=== PATIENT | female | born 1955 | race Caucasian/White ===

== ENCOUNTER 2020-04-22 06:26 | Inpatient (IN) | payer MEDICARE ==
[~2020-04-22] VITALS: Ht 162.6 cm; Wt 112.4 kg
[2020-04-22] MEDS ORDERED: HUMULIN R100 UNIT/1 SUBQ (06:36)
[2020-04-22] MEDS ORDERED: SYNTHROID137 MC1 PO (06:37)
[2020-04-22] MEDS ORDERED: HUMULIN N100 UNIT/1 SQ (06:37)
[2020-04-22 06:38] VITALS: BP 171/94
[2020-04-22 07:20] LABS: BE -1.8 mmol/L (-2 to +3); PCO2 30.6 mmHg (35.0-45.0); PO2 73.4 mmHg (75.0-100.0); pH 7.458 (7.340-7.450)
[2020-04-22 07:34] LABS: ABSOLUTE LYMPHOCYTES 0.4 thou/uL (0.8-5.3); ABSOLUTE MONOCYTES 0.4 thou/uL (0.0-1.2); ABSOLUTE NEUTROPHILS 4.8 thou/uL (1.6-8.1); BASOPHILS 0.8 %; EOSINOPHILS 0.2 %; HEMATOCRIT 36.3 % (37.0-47.0); LYMPHOCYTES 7.5 %; MCH 27.4 pg (26.0-34.0); NUCLEATED RBCS 0 /100WBC; PLATELET COUNT* 210 thou/uL (150-400); POLYS 84.5 %; RBC 4.38 mil/uL (4.20-5.00); RDW-CV 15.6 % (10.5-14.5); WBC 5.6 thou/uL (4.0-11.0)
[2020-04-22 07:46] LABS: CALCIUM 8.2 mg/dL (8.5-10.1); CREATININE 1.4 mg/dL (0.6-1.3); POTASSIUM 3.7 mmol/L (3.5-5.1); PROTIME 10.7 Seconds (9.20-11.50)
[2020-04-22 07:57] LABS: ALBUMIN 3.5 g/dL (3.4-5.0); TOTAL BILIRUBIN 0.7 mg/dL (<0.1-1.0); TOTAL PROTEIN 7.9 g/dL (6.4-8.2)
--- NOTE | 2020-04-22 08:46 | NUR ---
PT'S SON, MIRIAN BOB, CALLED TO CHECK ON THE PATIENT. THE PT GAVE PERMISSION FOR HIM TO HAVE ANY PATIENT INFORMATION.
[2020-04-22 12:36] VITALS: BP 132/47
[2020-04-22 13:30] VITALS: BP 156/65
[2020-04-22] MEDS ORDERED: LITE COAT ASPI325 MG PO (15:28)
--- NOTE | 2020-04-22 15:40 | 2DMMODE ---
[place] [address] 2 D/M-MODE ECHOCARDIOGRAM Name: ARIANNA MAYBERRY Adryan Room: [address] IN .R.#: [id number] Admission: 04/22/20 Attend Phys: Jovanny Chapman, Discharge: Date of : 59 Date of Service: 04/22/20 1539 Report #: [id number] THIS REPORT FOR: cc: PETE REESE NP, KATHERINE J. NP Holkins, John M. MD [facility] ~ APPROVED REPORT Study performed: 04/22/2020 13:44:13 EXAM: Comprehensive 2D, Doppler, and color-flow Echocardiogram Patient Location: In-Patient BSA: 2.17 HR: 103 bpm BP: 171/83 mmHg Other Information Study Quality: Fair Indications Dyspnea 2D Dimensions IVSd: 9.84 (7-11mm) LVOT Diam: 17.78 (18-24mm) LVDd: 47.32 mm PWd: 9.77 (7-11mm) Ascending Ao: 27.00 (22-36mm) LVDs: 29.98 (25-40mm) Aortic Root: 22.33 mm Volumes Left Atrial Volume (Systole) LA ESV Index: 19.80 mL/m2 Aortic Valve AoV Peak Bernardo.: 1.10 m/s AO Peak Gr.: 4.84 mmHg LVOT Max P.51 mmHg AO Mean Gr.: 2.62 mmHg LVOT Mean P.70 mmHg LVOT Max V: 0.94 m/s AO V2 VTI: 19.06 cm LVOT Mean V: 0.60 m/s CATIE (VTI): 2.55 cm2 LVOT V1 VTI: 19.55 cm Mitral Valve MV Mean Gr.: 4.13 mmHg E/A Ratio: 1.75 [place] [address] 2 D/M-MODE ECHOCARDIOGRAM Name: ARIANNA MAYBERRY Room: [address] IN ..#: [id number] Admission: 04/22/20 Attend Phys: Jovanny Chapman, Discharge: Date of : 59 Date of Service: 04/22/20 1539 Report #: [id number] MV Decel. Time: 176.12 ms MV E Max Bernardo.: 1.63 m/s MV PHT: 51.07 ms MVA (PHT): 4.31 cm2 TDI E/Lateral E': 23.29 E/Medial E': 20.38 Medial E' Bernardo.: 0.08 m/s Lateral E' Bernardo.: 0.07 m/s Pulmonary Valve PV Peak Bernardo.: 0.86 m/s PV Peak Gr.: 2.94 mmHg Tricuspid Valve RAP Estimate: 10.00 mmHg TR Peak Gr.: 36.75 mmHg RVSP: 46.75 mmHg PA Pressure: 46.75 mmHg Left Ventricle The left ventricle is normal size. There is distal septal and apical hypokinesis. Mild concentric left ventricular hypertrophy. Left ventricular systolic function is borderline. LVEF is 50-55%. The left ventricular diastolic function is normal. Right Ventricle The right ventricle is normal size. The right ventricular systolic function is normal. Device lead is present in the right ventricle. Atria Left atrium is mildly dilated. The right atrium size is normal. Aortic Valve Mild aortic valve sclerosis. No aortic regurgitation is present. There is no aortic valvular stenosis. Mitral Valve Mitral valve leaflets are mildly thickened. Mild mitral regurgitation. No evidence of mitral valve stenosis. Tricuspid Valve The tricuspid valve is normal in structure. Mild tricuspid regurgitation. Pulmonic Valve The pulmonary valve is normal in [place] [address] 2 D/M-MODE ECHOCARDIOGRAM Name: ARIANNA MAYBERRY Room: [address] IN [facility]#: [id number] Admission: 04/22/20 Attend Phys: Jovanny Chapman, Discharge: Date of : 59 Date of Service: 04/22/20 1539 Report #: [id number] regurgitation. Great Vessels The aortic root is normal in size. IVC is normal in size and collapses >50% with inspiration. Pericardium There is no pericardial effusion. <Conclusion> The left ventricle is normal size. Mild concentric left ventricular hypertrophy. Left ventricular systolic function is borderline. LVEF is 50-55%. The right ventricle is normal size. Left atrium is mildly dilated. The right atrium size is normal. Mild aortic valve sclerosis. No aortic regurgitation is present. There is no aortic valvular stenosis. Mitral valve leaflets are mildly thickened. Mild mitral regurgitation. No evidence of mitral valve stenosis. The tricuspid valve is normal in structure. Mild tricuspid regurgitation. IVC is normal in size and collapses >50% with inspiration. There is no pericardial effusion. There is distal septal and apical hypokinesis. Device lead is present in the right ventricle. <ELECTRONICALLY SIGNED> By: Beto [place] MD, FACC 04/22/20 1539 1539 1539 Beto [place] MD, FACC /INF
--- NOTE | 2020-04-22 16:02 | EKG ---
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: TM : 1955 Requested By: Lucita Grady Order Number: [id number] MD: Beto [place] Measurements Intervals [place] Rate: 102 P: 85 SD: 150 QRS: 26 QRSD: 99 T: 129 QT: 329 QTc: 429 Interpretive Statements Sinus tachycardia Possible anterior infarct, old Repol abnrm suggests ischemia, lateral leads Baseline wander in lead(s) V1 No previous ECG available for comparison Electronically Signed On 04-22-2020 16:01:08 CDT by Beto [place] [email or web address] <ELECTRONICALLY SIGNED> By: Beto [place] MD, [facility] 04/22/20 1601 0735 0735 Beto [place] MD, [facility] /EPI
--- NOTE | 2020-04-22 17:56 | NUR ---
PT. ADMITTED TO FLOOR FROM ER. ADMISSION INTERVENTIONS DOCUMENTED. PT. ON HEPARIN GTT PER PROTOCOL, TOLERATING WITHOUT COMPLICATIONS. UP AD TARUN, TOLERATED WITHOUT DIFFICULTY. RLE BOOT REMOVED TO AIR DRY. L LIMB ALERT, BAND IN PLACE. VSS, SR ON MONITOR, DENIES CHEST PAIN. CATH SCHEDULED FOR TOMORROW. STRICT I&OS, DROPLET PRECAUTIONS UNTIL COVID 19 R/OUT TOMORROW. TRANSFERED CARE TO [facility]. PT IN STABLE CONDITION, IN BED WATCHING TV AT THIS TIME.
[2020-04-22 20:00] VITALS: BP 151/70
[2020-04-23] VITALS (14 sets, daily range): BP systolic 102–150; BP diastolic 38–75
[2020-04-23 02:07] LABS: GLYCOHEMOGLOBIN (HGB A1C) 9.4 % (4.8-5.6)
--- NOTE | 2020-04-23 06:43 | NUR ---
ASSESSMENTS COMPLETED AT BEDSIDE, PLEASE REFER TO CHARTING. MEDICATIONS ADMINISTERED PER MAR AND PHYSICIAN ORDERS. HOURLY ROUNDING COMPLETED FOR SAFETY, CALL LIGHT WITHIN REACH, ALL CURRENT NEEDS HAVE BEEN MET AT THIS TIME.
[2020-04-23 08:25] LABS: HEMATOCRIT 32.9 % (37.0-47.0); HEMOGLOBIN 10.9 gm/dL (12.0-15.0); MCH 27.3 pg (26.0-34.0); MCHC 33.2 g/dL (28.0-37.0); MCV 82.2 fL (80.0-100.0); MPV 9.8 fl. (7.2-11.1); RDW-CV 15.5 % (10.5-14.5); WBC 7.4 thou/uL (4.0-11.0)
[2020-04-23 08:46] LABS: ANION GAP 7 mmol/L (7-16); BUN 37 mg/dL (7-18); CALCIUM 8.2 mg/dL (8.5-10.1); CHLORIDE 98 mmol/L (98-107); CHOLESTEROL 167 mg/dL (<200); CO2 29 mmol/L (21-32); CREATININE 1.3 mg/dL (0.6-1.3); GLUCOSE 202 mg/dL (70-99); HDL CHOLESTEROL 40 mg/dL (>40); LDL CHOLESTEROL 112 mg/dL (<100); MAGNESIUM 2.6 mg/dL (1.8-2.4); SODIUM 134 mmol/L (136-145); TC:HDL 4.2 Ratio (Not establshd); TRIGLYCERIDE 75 mg/dL (<150); TROPONIN-I LEVEL 2.33 ng/mL (<0.06); VLDL 15 mg/dL (<40)
[2020-04-23 08:48] LABS: SERUM ASSESSMENT Clear
--- NOTE | 2020-04-23 12:09 | NUR ---
Nutruition: screen per BMI. Pt reported normal appetite, has been NPO today. Albumin 3.5. RFT's elevated. BG 191-490. Meds reviewed. Pt delcined diet info. Assess at low nutrition risk at this time.
--- NOTE | 2020-04-23 13:20 | NUR ---
Pt meeting with cardiac rehab nurse, EDWIN to f/u later
--- NOTE | 2020-04-23 14:45 | NUR ---
Pt is A&O. Resides at home alone. Independent. Pt has a walker and cane that she can use for mobility. Pt has a home cpap. No hx of HH or SNF. Pt recently moved to the area to be closer to her son. Goal is home at hi. Pt waiting to have cath today.
--- NOTE | 2020-04-23 20:16 | NUR ---
PT. AOX4,VSS, SR ON MONITOR, DENIES PAIN, ANXIOUS ABOUT CATH THIS AM. PT. NPO EXCEPT MEDS. SSI INSULIN HELD BUT SCHEDULED ADMINISTERED PT IS TYPE 1 DM. CATH DELAYED DUE TO EMERGENT CASES. PT. RETURNED FROM CATH WITH 2 CIRCUMFLEX STENTS PLACED. POST CATH INTERVENTIONS DOCUMENTED. PT. IN BED IN PARTIAL [place] POSITION WITH HOB 30 DEGREES. PT EDUCATED TO WATCH FOR S/S OF BLEEDNG FROM CATH SITE AND TO REMAIN IN SAID POSITION. CALL LIGHT AND PERSONAL BELONGINGS PLACED WITHIN REACH. HOURLY ROUNDING PERFORMED. IN STABLE CONDITION AND IN NO APPARENT DISTRESS AT SHIFT CHANGE.
[2020-04-24] VITALS: BP 98/48
[2020-04-24 04:00] VITALS: BP 135/53
[2020-04-24 04:17] LABS: HEMOGLOBIN 10.5 gm/dL (12.0-15.0); MCH 27.6 pg (26.0-34.0); MCHC 33.7 g/dL (28.0-37.0); MPV 10.5 fl. (7.2-11.1); RBC 3.78 mil/uL (4.20-5.00); RDW-CV 15.5 % (10.5-14.5); WBC 8.6 thou/uL (4.0-11.0)
[2020-04-24 05:25] LABS: ALBUMIN 2.8 g/dL (3.4-5.0); CALCIUM 7.9 mg/dL (8.5-10.1); CREATININE 1.2 mg/dL (0.6-1.3); POTASSIUM 4.2 mmol/L (3.5-5.1); TOTAL BILIRUBIN 0.6 mg/dL (<0.1-1.0); TOTAL PROTEIN 6.8 g/dL (6.4-8.2)
[2020-04-24 05:37] LABS: TROPONIN-I LEVEL 1.53 ng/mL (<0.06)
[2020-04-24 08:00] VITALS: BP 130/54
[2020-04-24 08:45] VITALS: BP 110/57
[2020-04-24] MEDS ORDERED: LIPITOR 20 MG T20 M1 PO (10:52)
[2020-04-24] MEDS ORDERED: BRILINTA90 MG PO (10:52)
[2020-04-24] MEDS ORDERED: CARVEDILOL3.125 MG PO (10:52)
[2020-04-24] MEDS ORDERED: CEFDINIR300 MG PO (10:52)
[2020-04-24] MEDS ORDERED: NITROGLYCERIN0.4 MG SUBLING (10:52)
[2020-04-24] MEDS ORDERED: ASPIR 8181 MG PO (10:52)
[2020-04-24] MEDS ORDERED: COZAAR 25 MG TA25 M1 PO (10:52)
[2020-04-24] MEDS ORDERED: AZITHROMYCIN 2250 MG PO (10:52)
[2020-04-24] MEDS ORDERED: LIPITOR40 MG PO (10:57)
--- NOTE | 2020-04-24 11:50 | CARD ---
[address] [address] CARDIAC CATH REPORT Name: JEFE,ARIANNA Adryan Room: [address] IN [facility]#: [id number] Admission: 04/22/20 Attend Phys: Jovanny Chapman MD Discharge: Date of : 59 Report #: [id number] THIS REPORT FOR: //name// cc: PETE REESE NP, KATHERINE J. NP ~ APPROVED REPORT Study performed: 04/23/2020 14:38:22 Patient Details Patient Status: In-Patient Room #: The patient is a 64 year-old female Event Personnel Beto [place] Head Rigger, Silke Moran RN Application Integration Architect, Rosie Paniagua RN Application Integration Architect, Daniel Irizarry RTR Scrub, Екатерина Marcelo RTR Monitor Procedures Performed Art Access - R femoral artery, Left Heart Cath Coronaries, Bypass Grafts LHCCORCABG, PETR Place w/wo Plasty Single CIRC , Hemostasis w/ Angioseal Indication Non-STEMI Risk Factors Obesity, Hypercholesterolemia, Hypertension Previous Procedures/Diagnoses Previous CABG, Previous NH Admission/Lab Medications/Medications given during procedure Angiomax IV 16.5 ml, Angiomax Drip IV 38.5 ml per hr, Ticagrelor PO 180 mg, Aspirin PO 162 mg Procedure Narrative The patient was brought electively to the Cardiac Catheterization Laboratory and was prepped and draped in a sterile manner. The right femoral was infiltrated with 2% Lidocaine subcutaneous anesthesia. A 6F Hulen sheath was inserted into the right femoral artery. Coronary angiography was performed using coronary diagnostic catheters. The right coronary system was accessed and visualized with a 6F JR4 catheter. The left coronary system was accessed and visualized with a 6F JL3.5 catheter. The [place] [address] CARDIAC CATH REPORT Name: ARIANNA MYABERRY Room: [address] [place] [facility]#: [id number] Admission: 04/22/20 Attend Phys: Jovanny Chapman MD Discharge: Date of : 59 Report #: [id number] and visualized with a 6F Pigtail catheter. Left ventricular/Aortic Valve gradient assessed via catheter pullback. Pre-demployment femoral angiogram was performed . Closure device was deployed with a 6 Fr Angioseal STS. The patient tolerated the procedure well and there were no complications associated with the procedure. There was no hematoma. The ALEXANDRE graft was visualized with the 6F IM catheter. The saphenous vein grafts were visualized with the 6F JR4 catheter and the 6F ARMOD 1 catheter. Intraoperative Conscious Sedation Sedation start time: 15:29 Case end Time: 16:22 Fentanyl 25 mcg Versed 1 mg Fluoro Time: 15.1 minutes Dose: DAP 805460 cGycm2 2662 2662 mGy Contrast Type and Amount: Visipaque 175 ml [place] Artery Percent Stenosis 1. Widely patent ALEXANDRE graft to the LAD with 70% tubular distal LAD narrowing 2. Widely patent saphenous vein graft to the distal right coronary artery with 50% posterior descending branch narrowing 3. Small patent saphenous vein graft to a tiny diagonal branch with 50% ostial graft narrowing Diagnostic Cath Left Main 0% narrowing LAD 100% proximal LAD occlusion Circumflex 50% tubular proximal circumflex narrowing with 90% mid vessel stenosis and 60% tubular distal narrowing Right Coronary 100% proximal occlusion Left Ventriculography Left Ventriculography was not performed. Hemodynamics The aortic pressure is 184/47 mmHg with a mean of 73 mmHg. The left ventricular pressure is 153/3 mmHg with a mean of mmHg. The left ventricular end diastolic pressure is 22 mmHg. There was no gradient across the aortic valve upon pullback. PCI Technique Lesion Anticoagulation was achieved with Angiomax. [place] [address] CARDIAC CATH REPORT Name: ARIANNA MAYBERRY Room: [address] [place] [facility]#: [id number] Admission: 04/22/20 Attend Phys: Jovanny Chapman MD Discharge: Date of : 59 Report #: [id number] with Angiomax IV 16.5 ml. Percutaneous coronary intervention was performed on the mid circumflex artery segment. The lesion stenosis prior to intervention was 90% with KAREY 3 flow. A 6FR XB 3.0 100CM Guide Catheter was used to engage the Left ostium. A BMW 190cm Interventional Guidewire was used to cross the lesion. BALLOON DILATION A Balloon catheter Euphora SC 2.25x12 was inserted and inflated up to 12.00atm for 12seconds. A balloon catheter NC Euphora 2.25 x 12 was inserted and inflated up to 18 cally for 10 seconds. Additional Inflation: 20 cally for 10 seconds. STENT DEPLOYMENT A drug-eluting stent Billy RX Stent 2.93B08pj was inserted and inflated up to 12.00atm for 8seconds. Additional Inflation: 12.00atm for 8seconds. A drug eluting stent Billy RX Stent 2.25 x 8mm was inserted and inflated up to 12 cally for 8 seconds. Additional Inflation: 12 cally for 7 seconds. Final angiography reveals 0 % stenosis with KAREY 3 flow. Conclusion 1. Non-STEMI 2. Severe coronary artery disease characterized by the following: A 100% proximal LAD occlusion B 50% proximal 90% mid and 60% distal circumflex narrowing C total occlusion of the dominant right coronary proximally 2. Graft study characterized by the following: A widely patent ALEXANDRE graft to the LAD with 70% tubular distal LAD narrowing B patent saphenous vein graft to a very tiny diagonal with 50% ostial graft narrowing C widely patent saphenous vein graft the distal right coronary artery with 50% posterior descending branch narrowing 3. Moderate elevation of left ventricular end-diastolic pressure at rest with moderate [place] [address] CARDIAC CATH REPORT Name: ARIANNA MAYBERRY Room: [address] [place] [facility]#: [id number] Admission: 04/22/20 Attend Phys: Jovanny Chapman MD Discharge: Date of : 59 Report #: [id number] 4. Successful PCI with deployment of sequential drug-eluting stents at the site of 90% mid circumflex stenosis with 0% residual narrowing and KAREY-3 flow to the distal vessel Recommendations Cardiac Risk Reduction Program Aggressive Medical Therapy Medications Administered Aspirin (any) Ticagrelor Diagnostic Cath Approved by: Beto [place] MD Date/Time: 04/24/2020 11:45:26 <ELECTRONICALLY SIGNED> By: Beto [place] MD, [facility] 04/24/20 1149 1149 1149Beto [place] MD, FACC /INF
[2020-04-24 12:10] VITALS: BP 112/45
[2020-04-24 15:09] VITALS: BP 110/57
--- NOTE | 2020-04-26 11:14 | EKG ---
[place] [address] ELECTROCARDIOGRAM REPORT Name: PEARL MAYBERRYNA Adryan Room: [address] IN M.R.#: [id number] Admission: 04/22/20 Attend Phys: Jovanny Chapman, Discharge: 04/24/20 Date of : 59 Date of Service: 04/24/20 0551 Report #: [id number] THIS REPORT FOR: //name// [facility] Test Date: 2020-04-24 Test Time: 05:51:41 Pat Name: ARIANNA MAYBERRY Department: Room: [address] Gender: F Press Tender: THOWARD3 : 1955 Requested By: Beto [place] Order Number: [id number] Yahaira MD: Rao Davison Measurements Intervals [place] Rate: 66 P: 80 NV: 165 QRS: 16 QRSD: 99 T: 116 QT: 436 QTc: 457 Interpretive Statements Sinus rhythm Consider anterior infarct Repol abnrm suggests ischemia, lateral leads Electronically Signed On 04-26-2020 11:13:55 CDT by Rao Davison [email or web address] <ELECTRONICALLY SIGNED> By: Rao Davison MD, [facility] 04/26/20 1113 0551 0551 Rao Davison MD, [facility] /EPI
--- NOTE | 2020-04-26 11:14 | EKG ---
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 <ELECTRONICALLY SIGNED> By: Rao Davison MD, [facility] 04/26/20 1113 1708 1708 Rao Davison MD, [facility] /EPI
== END 2020-04-24 16:00 | disposition home or self-care (01) | DRG 246 ==
LOC: M.ERS 06:26 → M.TBA-ER 08:28 → M.2W 08:28
PROVIDERS: Internal Medicine; Personal Emergency Response Attendant; ADMIT Internal Medicine; ATTEND Internal Medicine
PROC: 027035Z Dilation of Coronary Artery, One Artery with Two Drug-eluting Intraluminal Devices, Percutaneous Approach (ICD-10-PCS; principal; 2020-04-23)
PROC: B211YZZ Fluoroscopy of Multiple Coronary Arteries using Other Contrast (ICD-10-PCS; principal; 2020-04-23)
PROC: B213YZZ Fluoroscopy of Multiple Coronary Artery Bypass Grafts using Other Contrast (ICD-10-PCS; principal; 2020-04-23)
PROC: B218YZZ Fluoroscopy of Left Internal Mammary Bypass Graft using Other Contrast (ICD-10-PCS; principal; 2020-04-23)
PROC: 4A023N7 Measurement of Cardiac Sampling and Pressure, Left Heart, Percutaneous Approach (ICD-10-PCS; principal; 2020-04-23)
DX: I21.4 Non-ST elevation (NSTEMI) myocardial infarction (principal); J96.01 Acute respiratory failure with hypoxia; J18.9 Pneumonia, unspecified organism; I50.33 Acute on chronic diastolic (congestive) heart failure; Z68.41 Body mass index [BMI] 40.0-44.9, adult; I13.0 Hypertensive heart and chronic kidney disease with heart failure and stage 1 through stage 4 chronic kidney disease, or unspecified chronic kidney disease; E66.9 Obesity, unspecified; E03.9 Hypothyroidism, unspecified; N18.3 Chronic kidney disease, stage 3 (moderate); E11.22 Type 2 diabetes mellitus with diabetic chronic kidney disease; I25.10 Atherosclerotic heart disease of native coronary artery without angina pectoris; I25.5 Ischemic cardiomyopathy; E78.5 Hyperlipidemia, unspecified; E11.65 Type 2 diabetes mellitus with hyperglycemia; I48.0 Paroxysmal atrial fibrillation; Z20.828 Contact with and (suspected) exposure to other viral communicable diseases; I25.2 Old myocardial infarction; Z79.4 Long term (current) use of insulin; Z79.899 Other long term (current) drug therapy; Z95.1 Presence of aortocoronary bypass graft; Z95.810 Presence of automatic (implantable) cardiac defibrillator; Z85.3 Personal history of malignant neoplasm of breast; Z82.49 Family history of ischemic heart disease and other diseases of the circulatory system

== ENCOUNTER 2020-04-26 19:09 | Inpatient (IN) | payer MEDICARE ==
[~2020-04-26] VITALS: Ht 162.6 cm; Wt 116.6 kg
[~2020-04-26 19:09] MED LIST: ASPIR 8181 MG PO; AZITHROMYCIN 2250 MG PO; BRILINTA90 MG PO; CARVEDILOL3.125 MG PO; CEFDINIR300 MG PO; COZAAR 25 MG TA25 M1 PO; HUMULIN N100 UNIT/1 SQ; HUMULIN R100 UNIT/1 SUBQ; LIPITOR 20 MG T20 M1 PO; LIPITOR40 MG PO; LITE COAT ASPI325 MG PO; NITROGLYCERIN0.4 MG SUBLING; SYNTHROID137 MC1 PO
[2020-04-26 19:26] VITALS: BP 163/67
[2020-04-26 19:55] LABS: ABSOLUTE BASOPHILS 0.1 thou/uL (0.0-0.2); ABSOLUTE LYMPHOCYTES 1.8 thou/uL (0.8-5.3); ABSOLUTE MONOCYTES 0.6 thou/uL (0.0-1.2); ABSOLUTE NEUTROPHILS 4.9 thou/uL (1.6-8.1); BASOPHILS 1.3 %; EOSINOPHILS 0.3 %; HEMATOCRIT 32.8 % (37.0-47.0); HEMOGLOBIN 10.9 gm/dL (12.0-15.0); LYMPHOCYTES 24.2 %; MCH 27.4 pg (26.0-34.0); MCHC 33.3 g/dL (28.0-37.0); MCV 82.2 fL (80.0-100.0); MONOCYTES 7.9 %; MPV 9.6 fl. (7.2-11.1); NUCLEATED RBCS 0 /100WBC; POLYS 66.3 %; RBC 3.98 mil/uL (4.20-5.00); RDW-CV 16.2 % (10.5-14.5); WBC 7.4 thou/uL (4.0-11.0)
[2020-04-26 19:57] LABS: PLATELET COUNT* 311 thou/uL (150-400)
[2020-04-26 20:07] LABS: PROTIME 10.5 Seconds (9.20-11.50)
[2020-04-26 20:09] LABS: CALCIUM 7.5 mg/dL (8.5-10.1); CREATININE 1.1 mg/dL (0.6-1.3); POTASSIUM 3.6 mmol/L (3.5-5.1)
[2020-04-26 20:22] LABS: ALBUMIN 2.8 g/dL (3.4-5.0); MAGNESIUM 2.2 mg/dL (1.8-2.4); TOTAL BILIRUBIN 0.4 mg/dL (<0.1-1.0); TOTAL PROTEIN 6.5 g/dL (6.4-8.2)
[2020-04-27] VITALS (7 sets, daily range): BP systolic 121–184; BP diastolic 56–78
[2020-04-27 06:08] LABS: URINE BILIRUBIN NEGATIVE (Negative); URINE BLOOD NEGATIVE (Negative); URINE CLARITY CLEAR; URINE COLOR YELLOW; URINE GLUCOSE-RANDOM NEGATIVE (Negative); URINE KETONES NEGATIVE (Negative); URINE LEUKOCYTES-REFLEX NEGATIVE (Negative); URINE NITRITE-REFLEX NEGATIVE (Negative); URINE PROTEIN NEGATIVE (Negative); URINE SPECIFIC GRAVITY 1.025 (1.005-1.030)
--- NOTE | 2020-04-27 06:17 | NUR ---
PATIENT ADMITTED TO ROOM 206 FROM THE ER AT APPROXIMATELY 0015. REPORT GIVEN FROM THE ER NURSE. PATIENT ALERT AND ORIENTED X 4. VSS ON RA. NO C/O PAIN AT THIS TIME. PATIENT ORIENTED TO ROOM AND POLICIES AND ADMISSION ASSESMENT PERFORMED AND CHARTED. FALL EDUCATION GIVEN. PATIENT VERBALIZED UNDERSTANDING. PATIENT IS UP WITH ASSIST X 1 WITH WALKER TO THE BATHROOM. PATIENT SINUS RHYTHM ON THE TELE MONITOR. IV IN RIGHT FOREARM-SL. UA COLLECTED AND SENT FOR ANALYSIS. PATIENT REMAINS IN SPECIAL CONTACT PRECAUTONS D/T PENDING COVID. PATIENT INSTRUCTED TO USE CALL LIGHT WHEN NEEDING ASSISTANCE. PATIENT EDUCATED AND ENCOURAGED TO USE CLUSTER CARE WHEN CALLING D/T PENDING COVID-19 TO HELP PREVENT POSSIBLE EXPOSURE TO STAFF. WILL CONTINUE WITH PLAN OF CARE AND NURSING TO MONITOR.
--- NOTE | 2020-04-27 11:11 | EKG ---
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: [facility] : 1955 Requested By: Lily Foster Order Number: [id number] MD: Rao Davison Measurements Intervals [place] Rate: 75 P: 68 ME: 171 QRS: 16 QRSD: 103 T: 108 QT: 385 QTc: 430 Interpretive Statements Sinus rhythm Probable anterior infarct, old Repol abnrm suggests ischemia, lateral leads Compared to ECG 04/24/2020 05:51:41 No significant changes Electronically Signed On 04-27-2020 11:10:10 CDT by Rao Davison [email or web address] <ELECTRONICALLY SIGNED> By: Rao Davison MD, [facility] 04/27/20 1110 29 29 Rao Davison MD, [facility] /EPI
--- NOTE | 2020-04-27 15:38 | NUR ---
Pt did not answer phone, CM spoke with Pt's son via phone. Pt is covid pending. Pt known to this CM [place] last week. Per son, Pt was dc on Sunday, was covid negative during that hospital stay, had been doing ok, but continued to complain of not feeling great. Pt stated developing fevers on Sunday and return to the hospital yesterday. Pt resides at home alone. Independent. Pt has a walker and cane for mobility. Has a home cpap. Goal is home at [place]. Following.
--- NOTE | 2020-04-27 15:59 | NUR ---
assumed pt care report received from nurse pt is aox4. on ra. tracing sinus rythm on playground monitor. accucheck ac.hs. pt denies pain. enhanced isolation in place. awaiting covid 19 lab result. blood thinner admisnistered as ordered. temperature of 101.9 at 08:00am. tylenol given. pt has good appetite.bno further complaint. iv antibiotic hanged as ordered. calllight at [facility]. fall precaution in place. will continue to monitor pt
--- NOTE | 2020-04-27 22:46 | NUR ---
ASSUMED CARE OF PT AT 1900. PT IS ALERT AND ORIENTED. VSS. PERRLA. NO COMPLAINTS OF PAIN. PT IS STILL PENDING COVID. PT IS IN SINUS RYTHM ON THE TELEMETRY. PT IS RESTING COMFORTABLY IN BED. RESPIRATIONS ARE EVEN AND NONLABORED. WILL CONTINUE TO MONITOR PT.
[2020-04-28] VITALS: BP 124/40; BP 167/68
[2020-04-28 04:00] VITALS: BP 154/52
[2020-04-28 08:00] VITALS: BP 136/64
[2020-04-28 08:51] LABS: ABSOLUTE BASOPHILS 0.1 thou/uL (0.0-0.2); ABSOLUTE EOSINOPHILS 0.1 thou/uL (0.0-0.7); ABSOLUTE LYMPHOCYTES 6.5 thou/uL (0.8-5.3); ABSOLUTE MONOCYTES 0.8 thou/uL (0.0-1.2); ABSOLUTE NEUTROPHILS 5.2 thou/uL (1.6-8.1); BASOPHILS 0.8 %; EOSINOPHILS 0.4 %; HEMATOCRIT 32.3 % (37.0-47.0); HEMOGLOBIN 10.7 gm/dL (12.0-15.0); LYMPHOCYTES 51.5 %; MCH 27.2 pg (26.0-34.0); MCHC 33.1 g/dL (28.0-37.0); MCV 82.2 fL (80.0-100.0); MONOCYTES 6.1 %; MPV 9.2 fl. (7.2-11.1); NUCLEATED RBCS 0 /100WBC; PLATELET COUNT* 344 thou/uL (150-400); POLYS 41.2 %; RBC 3.93 mil/uL (4.20-5.00); RDW-CV 15.9 % (10.5-14.5); WBC 12.6 thou/uL (4.0-11.0)
[2020-04-28 09:06] LABS: ALBUMIN 2.7 g/dL (3.4-5.0); CALCIUM 7.6 mg/dL (8.5-10.1); POTASSIUM 4.1 mmol/L (3.5-5.1); TOTAL BILIRUBIN 0.7 mg/dL (<0.1-1.0); TOTAL PROTEIN 6.4 g/dL (6.4-8.2)
[2020-04-28 12:05] VITALS: BP 103/38
--- NOTE | 2020-04-28 12:54 | NUR ---
Per Dr, Pt febrile today. Blood cultures were negative. Dc in a few days.
[2020-04-28 16:39] VITALS: BP 159/68
--- NOTE | 2020-04-28 18:47 | NUR ---
PT IS OAX4. ON RA. TRACING SR ON CLOTHING EXAMINER. VSS. NO COMPLAINT. ACCUCHECK. DENIES PAIN. UP WITH ASSIST TO RESTROOM. IV ABX HANGED. HIGH TEMP THIS AM. TLENOL WAS GIVEN. TEMP WENT DOWN.
[2020-04-29] VITALS: BP 128/43
[2020-04-29 04:41] LABS: HEMATOCRIT 31.4 % (37.0-47.0); HEMOGLOBIN 10.3 gm/dL (12.0-15.0); MCH 27.3 pg (26.0-34.0); MCHC 32.7 g/dL (28.0-37.0); MCV 83.3 fL (80.0-100.0); MPV 9.5 fl. (7.2-11.1); NUCLEATED RBCS 0 /100WBC; PLATELET COUNT* 346 thou/uL (150-400); RBC 3.77 mil/uL (4.20-5.00); RDW-CV 16.2 % (10.5-14.5)
[2020-04-29 04:56] LABS: ALBUMIN 2.6 g/dL (3.4-5.0); CALCIUM 8.2 mg/dL (8.5-10.1); CREATININE 1.1 mg/dL (0.6-1.3); POTASSIUM 3.8 mmol/L (3.5-5.1); TOTAL BILIRUBIN 0.4 mg/dL (<0.1-1.0); TOTAL PROTEIN 6.2 g/dL (6.4-8.2)
[2020-04-29 05:30] LABS: ABSOLUTE LYMPHOCYTES 6.2 thou/uL (0.8-5.3); ABSOLUTE MONOCYTES 2.2 thou/uL (0.0-1.2); ABSOLUTE NEUTROPHILS 3.6 thou/uL (1.6-8.1); ATYPICAL LYMPHS 9 %; ATYPICAL MONONUCLEARS 5 %; PLATELET ESTIMATE ADEQUATE
[2020-04-29 08:00] VITALS: BP 152/58
[2020-04-29 12:00] VITALS: BP 104/46
--- NOTE | 2020-04-29 13:09 | NUR ---
Pt discharging to home today, HH arranged with [facility], faxed referral and orders.
[2020-04-29] MEDS ORDERED: CEFDINIR300 MG PO (14:24)
== END 2020-04-29 16:15 | disposition home health service (06) | DRG 291 ==
LOC: M.ERS 19:09 → M.TBA-ER 20:59 → M.2W 20:59
PROVIDERS: Emergency Medicine; Nurse Practitioner; ADMIT Internal Medicine; ATTEND Internal Medicine
DX: I13.0 Hypertensive heart and chronic kidney disease with heart failure and stage 1 through stage 4 chronic kidney disease, or unspecified chronic kidney disease (principal); J18.9 Pneumonia, unspecified organism; I50.33 Acute on chronic diastolic (congestive) heart failure; Z68.41 Body mass index [BMI] 40.0-44.9, adult; E11.22 Type 2 diabetes mellitus with diabetic chronic kidney disease; R50.9 Fever, unspecified; E11.40 Type 2 diabetes mellitus with diabetic neuropathy, unspecified; E11.65 Type 2 diabetes mellitus with hyperglycemia; I25.10 Atherosclerotic heart disease of native coronary artery without angina pectoris; E03.9 Hypothyroidism, unspecified; Z20.828 Contact with and (suspected) exposure to other viral communicable diseases; N18.3 Chronic kidney disease, stage 3 (moderate); E66.9 Obesity, unspecified; I25.2 Old myocardial infarction; Z95.5 Presence of coronary angioplasty implant and graft; Z95.1 Presence of aortocoronary bypass graft; Z79.899 Other long term (current) drug therapy; Z79.2 Long term (current) use of antibiotics; Z79.82 Long term (current) use of aspirin

== ENCOUNTER → 2021-02-08 | Outpatient (CLI) | payer MEDICARE | LOC: M.WC 13:43 | PROVIDERS: ATTEND Emergency Medicine Undersea and Hyperbaric Medicine | DX: E10.621 Type 1 diabetes mellitus with foot ulcer (principal); I70.244 Atherosclerosis of native arteries of left leg with ulceration of heel and midfoot; L97.421 Non-pressure chronic ulcer of left heel and midfoot limited to breakdown of skin; L84 Corns and callosities; E10.51 Type 1 diabetes mellitus with diabetic peripheral angiopathy without gangrene; E10.319 Type 1 diabetes mellitus with unspecified diabetic retinopathy without macular edema; E10.42 Type 1 diabetes mellitus with diabetic polyneuropathy; E03.9 Hypothyroidism, unspecified; I11.0 Hypertensive heart disease with heart failure; I50.9 Heart failure, unspecified; G25.81 Restless legs syndrome; G47.30 Sleep apnea, unspecified; K21.9 Gastro-esophageal reflux disease without esophagitis; Z86.73 Personal history of transient ischemic attack (TIA), and cerebral infarction without residual deficits; Z85.3 Personal history of malignant neoplasm of breast; Z79.4 Long term (current) use of insulin ==

== ENCOUNTER → 2021-02-15 | Outpatient (CLI) | payer MEDICARE | LOC: M.WC 13:51 | PROVIDERS: ATTEND Emergency Medicine Undersea and Hyperbaric Medicine | DX: E10.621 Type 1 diabetes mellitus with foot ulcer (principal); I70.244 Atherosclerosis of native arteries of left leg with ulceration of heel and midfoot; L97.421 Non-pressure chronic ulcer of left heel and midfoot limited to breakdown of skin; L84 Corns and callosities; E10.51 Type 1 diabetes mellitus with diabetic peripheral angiopathy without gangrene; E10.319 Type 1 diabetes mellitus with unspecified diabetic retinopathy without macular edema; E10.42 Type 1 diabetes mellitus with diabetic polyneuropathy; E03.9 Hypothyroidism, unspecified; I11.0 Hypertensive heart disease with heart failure; I50.9 Heart failure, unspecified; G25.81 Restless legs syndrome; G47.30 Sleep apnea, unspecified; K21.9 Gastro-esophageal reflux disease without esophagitis; Z86.73 Personal history of transient ischemic attack (TIA), and cerebral infarction without residual deficits; Z85.3 Personal history of malignant neoplasm of breast; Z79.4 Long term (current) use of insulin ==

== ENCOUNTER → 2021-03-09 | Outpatient (CLI) | payer MEDICARE | LOC: M.WC 03-01 14:00 | PROVIDERS: ATTEND Podiatrist Foot & Ankle Surgery | DX: E10.621 Type 1 diabetes mellitus with foot ulcer (principal); I70.244 Atherosclerosis of native arteries of left leg with ulceration of heel and midfoot; L97.422 Non-pressure chronic ulcer of left heel and midfoot with fat layer exposed; L84 Corns and callosities; E10.51 Type 1 diabetes mellitus with diabetic peripheral angiopathy without gangrene; E10.319 Type 1 diabetes mellitus with unspecified diabetic retinopathy without macular edema; E10.42 Type 1 diabetes mellitus with diabetic polyneuropathy; E03.9 Hypothyroidism, unspecified; I11.0 Hypertensive heart disease with heart failure; I50.9 Heart failure, unspecified; G25.81 Restless legs syndrome; G47.30 Sleep apnea, unspecified; K21.9 Gastro-esophageal reflux disease without esophagitis; Z86.73 Personal history of transient ischemic attack (TIA), and cerebral infarction without residual deficits; Z85.3 Personal history of malignant neoplasm of breast; Z79.4 Long term (current) use of insulin ==

== ENCOUNTER → 2021-03-16 | Outpatient (CLI) | payer MEDICARE | LOC: M.WC 13:38 | PROVIDERS: ATTEND Podiatrist Foot & Ankle Surgery | DX: E10.621 Type 1 diabetes mellitus with foot ulcer (principal); I70.244 Atherosclerosis of native arteries of left leg with ulceration of heel and midfoot; L97.422 Non-pressure chronic ulcer of left heel and midfoot with fat layer exposed; L84 Corns and callosities; E10.51 Type 1 diabetes mellitus with diabetic peripheral angiopathy without gangrene; E10.319 Type 1 diabetes mellitus with unspecified diabetic retinopathy without macular edema; E10.42 Type 1 diabetes mellitus with diabetic polyneuropathy; E03.9 Hypothyroidism, unspecified; I11.0 Hypertensive heart disease with heart failure; I50.9 Heart failure, unspecified; G25.81 Restless legs syndrome; G47.30 Sleep apnea, unspecified; K21.9 Gastro-esophageal reflux disease without esophagitis; Z86.73 Personal history of transient ischemic attack (TIA), and cerebral infarction without residual deficits; Z85.3 Personal history of malignant neoplasm of breast ==

== ENCOUNTER → 2021-03-22 | Outpatient (CLI) | payer MEDICARE | LOC: M.WC 13:45 | PROVIDERS: ATTEND Emergency Medicine Undersea and Hyperbaric Medicine | DX: E10.621 Type 1 diabetes mellitus with foot ulcer (principal); I70.244 Atherosclerosis of native arteries of left leg with ulceration of heel and midfoot; L97.422 Non-pressure chronic ulcer of left heel and midfoot with fat layer exposed; L84 Corns and callosities; E10.51 Type 1 diabetes mellitus with diabetic peripheral angiopathy without gangrene; E10.319 Type 1 diabetes mellitus with unspecified diabetic retinopathy without macular edema; E10.42 Type 1 diabetes mellitus with diabetic polyneuropathy; E03.9 Hypothyroidism, unspecified; I11.0 Hypertensive heart disease with heart failure; I50.9 Heart failure, unspecified; G25.81 Restless legs syndrome; G47.30 Sleep apnea, unspecified; K21.9 Gastro-esophageal reflux disease without esophagitis; Z86.73 Personal history of transient ischemic attack (TIA), and cerebral infarction without residual deficits; Z85.3 Personal history of malignant neoplasm of breast ==

== ENCOUNTER → 2021-03-29 | Outpatient (CLI) | payer MEDICARE | LOC: M.WC 13:33 | PROVIDERS: ATTEND Emergency Medicine Undersea and Hyperbaric Medicine | DX: E10.621 Type 1 diabetes mellitus with foot ulcer (principal); I70.244 Atherosclerosis of native arteries of left leg with ulceration of heel and midfoot; L97.422 Non-pressure chronic ulcer of left heel and midfoot with fat layer exposed; L84 Corns and callosities; E10.51 Type 1 diabetes mellitus with diabetic peripheral angiopathy without gangrene; E10.319 Type 1 diabetes mellitus with unspecified diabetic retinopathy without macular edema; E10.42 Type 1 diabetes mellitus with diabetic polyneuropathy; E03.9 Hypothyroidism, unspecified; I11.0 Hypertensive heart disease with heart failure; I50.9 Heart failure, unspecified; G25.81 Restless legs syndrome; G47.30 Sleep apnea, unspecified; K21.9 Gastro-esophageal reflux disease without esophagitis; Z86.73 Personal history of transient ischemic attack (TIA), and cerebral infarction without residual deficits; Z85.3 Personal history of malignant neoplasm of breast ==